=== PATIENT | female | born 1970 | race Caucasian/White ===

== ENCOUNTER 2017-08-23 10:37 | Outpatient (CLI) | payer OTHER ==
[~2017-08-23] VITALS: Ht 167.6 cm; Wt 70.8 kg
[~2017-08-23 10:37] MED LIST: CYAN50TA PO; CYCL10TA9 PO; ERGO400C PO; HDR2T PO; HYDR118S10 PO; IRON45TA2 PO; LIDODERM PATCH TOP; MULT-974 PO; NFBIOT1000 PO; SULF-222 PO
[2017-08-23] MEDS ORDERED: ALPR1TAB2 PO (10:54)
[2017-08-23] MEDS ORDERED: ZOLP10TA PO (10:54)
[2017-08-23] MEDS ORDERED: DIPH25CA79 PO (10:54)
[2017-08-23] MEDS ORDERED: HYDR-3820 PO (10:54)
== END 2017-08-23 10:57 ==
LOC: PREOP 10:37
PROVIDERS: ATTEND Orthopaedic Surgery
DX: Z01.818 Encounter for other preprocedural examination (principal); M54.9 Dorsalgia, unspecified